=== PATIENT | female | born 1950 | race Caucasian/White ===

== ENCOUNTER 2018-01-15 12:08 | Emergency (ER) | payer OTHER, BC ==
[~2018-01-15] VITALS: Ht 167.6 cm; Wt 70.4 kg
[~2018-01-15 12:08] MED LIST: INDERIDE; NEXIUM20 MG PO; PREMPHASE 0.621 EACH; ZESTRIL,PRINIVIL5 MG
[2018-01-15 12:33] LABS: HEMATOCRIT 36.8 % (36.0-46.0); HEMOGLOBIN 12.8 G/DL (11.9-15.5); MCH 31.1 PG (29.0-34.0); MCHC 34.8 G/DL (30.0-36.0); MCV 89.5 FL (83-99); PLATELET COUNT 299 K/uL (156-360); RBC DIS.WIDTH-CV 12.9 % (11.8-14.6); RBC DIS.WIDTH-SD 42.4 % (39-53); RED BLOOD COUNT 4.11 M/uL (3.80-5.20); WHITE BLOOD COUNT 5.2 K/uL (4.1-10.2)
[2018-01-15] MEDS ORDERED: ACIDOPHILUS1 EAC3 PO (12:53)
[2018-01-15] MEDS ORDERED: HYDROCHLOROTHIA25 MG PO (12:53)
[2018-01-15] MEDS ORDERED: OSTEO BI-FLEX1 EAC1 PO (12:54)
[2018-01-15] MEDS ORDERED: VITAMIN D31000 UNI2 PO (12:54)
[2018-01-15] MEDS ORDERED: 24 HOUR ALLER15.8 ML BOTH NARES (12:55)
[2018-01-15 12:57] LABS: TROP-I INTERPRETATION NEGATIVE; TROPONIN-I 0.01 ng/mL (0.0-0.30)
[2018-01-15 13:00] LABS: CHLORIDE 100 MEQ/L (99-109); CREATININE 0.7 MG/DL (0.6-1.3); GFR ESTIMATE (CALCULATED) > 59 mL/min/; GLUCOSE 94 mg/dL (70-99); SODIUM 135 MEQ/L (136-147); UREA NITROGEN (BUN) 15 mg/dL (9-23)
[2018-01-15 16:13] LABS: TROP-I INTERPRETATION NEGATIVE; TROPONIN-I 0.01 ng/mL (0.0-0.30)
[2018-01-15 16:34] VITALS: BP 154/91
== END 2018-01-15 16:36 | disposition home or self-care (01) ==
LOC: EME 12:08
PROVIDERS: Emergency Medicine Emergency Medical Services
DX: I49.3 Ventricular premature depolarization (principal); J84.10 Pulmonary fibrosis, unspecified; I10 Essential (primary) hypertension; K21.9 Gastro-esophageal reflux disease without esophagitis; E78.5 Hyperlipidemia, unspecified; Z90.49 Acquired absence of other specified parts of digestive tract; Z98.890 Other specified postprocedural states
CPT/HCPCS: 71046; 80048; 84484; 85027; 93005; 99281; 99285